=== PATIENT | male | born 1970 | race Caucasian/White ===

== ENCOUNTER → 2017-12-21 | Outpatient (CLI) | payer BC ==
[2017-12-21 09:08] LABS: BASOPHILS # (AUTO) 0.05 x10^3/uL (0-0.1); BASOPHILS % (AUTO) 1 % (0-1); EOSINOPHILS # (AUTO) 0.14 x10^3/uL (0-0.4); EOSINOPHILS % (AUTO) 2 % (1-7); LYMPHOCYTES # (AUTO) 1.99 x10^3/uL (1-3.4); LYMPHOCYTES % (AUTO) 31 % (22-44); MD NO; MEAN CORPUSCULAR HEMOGLOBIN 29.4 pg (27.5-34.5); MEAN CORPUSCULAR HGB CONC 33.7 g/dL (33.2-36.2); MEAN CORPUSCULAR VOLUME 87.2 fL (81-97); MEAN PLATELET VOLUME 7.8 fL (7.4-10.4); MONOCYTES # (AUTO) 0.56 x10^3/uL (0.2-0.8); MONOCYTES % (AUTO) 9 % (2-9); NEUTROPHILS # (AUTO) 3.63 x10^3/uL (1.8-6.8); NEUTROPHILS % (AUTO) 57 % (42-75); PLATELET COUNT 267 x10^3/uL (130-400); RED CELL DISTRIBUTION WIDTH 14.2 % (9.4-14.8)
[2017-12-21 09:17] LABS: INTERNATIONAL NORMALIZED RATIO 1.03 (0.93-1.1); PROTHROMBIN TIME 10.6 Seconds (9.6-11.5)
[2017-12-21 09:18] LABS: ALANINE AMINOTRANSFERASE 64 U/L (12-78); ALBUMIN 4.1 g/dL (3.4-5.0); ANION GAP 7 mmol/L (5-15); CALCIUM 8.6 mg/dL (8.5-10.1); CHLORIDE 107 mmol/L (98-107); CREATININE 0.93 mg/dL (0.7-1.3)
[2017-12-21 09:20] LABS: ALKALINE PHOSPHATASE 44 U/L (45-117); BILIRUBIN,TOTAL 0.5 mg/dL (0.2-1.0); TOTAL PROTEIN 7.7 g/dL (6.4-8.2)
== END | disposition home or self-care (01) ==
LOC: STAR 08:20
PROVIDERS: ATTEND Surgery
DX: Z01.818 Encounter for other preprocedural examination (principal); R00.1 Bradycardia, unspecified
CPT/HCPCS: 36415; 80053; 85025; 85610; 93005

== ENCOUNTER 2017-12-28 06:30 | Day surgery (SDC) | payer BC ==
[~2017-12-28] VITALS: Ht 177.8 cm; Wt 106.7 kg
[2017-12-28 07:13] VITALS: BP 126/76
[2017-12-28] MEDS ORDERED: LACTATED RINGERS 1,000 ML IV SCH (07:16)
[2017-12-28] MEDS ORDERED: EPINEPHRINE 1 MG/ML, 1ML ONE (07:23)
[2017-12-28] MEDS ORDERED: BUPIVACAINE/PF 0.5% ONE (07:23)
[2017-12-28] MEDS ORDERED: FENTANYL PF 250 MCG/5ML ONE (07:41)
[2017-12-28] MEDS ORDERED: MIDAZOLAM 1 MG/ML, 2ML ONE (07:41)
[2017-12-28] MEDS ORDERED: PROPOFOL 10 MG/ML, 20ML ONE (07:45)
[2017-12-28] MEDS ORDERED: GLYCOPYRROLATE 0.2MG/1ML, 5ML ONE (07:45)
[2017-12-28] MEDS ORDERED: CEFAZOLIN 1,000 MG ONE (07:45)
[2017-12-28] MEDS ORDERED: DEXAMETHASONE 4 MG/ML, 1ML ONE (07:45)
[2017-12-28] MEDS ORDERED: ONDANSETRON 2MG/ML, 2ML ONE (07:45)
[2017-12-28] MEDS ORDERED: ACETAMINOPHEN 325 MG TABLET PO PRN (08:30)
[2017-12-28] MEDS ORDERED: ONDANSETRON 2MG/ML, 2ML IV PRN (08:30)
[2017-12-28] MEDS ORDERED: FENTANYL PF 100 MCG/2ML IV PRN (08:30)
[2017-12-28] MEDS ORDERED: ONDANSETRON ODT 8 MG PO PRN (08:30)
[2017-12-28] MEDS ORDERED: MEPERIDINE/PF 25MG/0.5ML IVPush PRN (08:30)
[2017-12-28] MEDS ORDERED: PROMETHAZINE 25 MG/ML, 1ML IV PRN (08:30)
[2017-12-28] MEDS ORDERED: MORPHINE SULFATE 4 MG/ML, 1ML IVPush PRN (08:30)
[2017-12-28] MEDS ORDERED: OXYcodone 5 MG/5 ML ORAL.SOL UDC PO PRN (08:30)
[2017-12-28] MEDS ORDERED: KETOROLAC 30 MG/1 ML IVPush ONE (08:51)
[2017-12-28] MEDS ORDERED: ACETAMINOPHEN 650 MG/20.3 ML UDC ONE (08:54)
[2017-12-28] MEDS ORDERED: OXYcodone 5 MG/5 ML ORAL.SOL UDC ONE (08:55)
[2017-12-28] MEDS ORDERED: FENTANYL PF 100 MCG/2ML ONE (08:55)
[2017-12-28] MEDS ORDERED: KETOROLAC 30 MG/1 ML ONE (08:55)
== END 2017-12-28 11:45 | disposition home or self-care (01) ==
LOC: OUT 06:30
PROVIDERS: ATTEND Surgery
DX: K43.2 Incisional hernia without obstruction or gangrene (principal); J45.909 Unspecified asthma, uncomplicated; E78.00 Pure hypercholesterolemia, unspecified; E66.9 Obesity, unspecified; Z72.89 Other problems related to lifestyle
CPT/HCPCS: 49560; 49568; C1781; J0171; J0690; J1100; J1885; J2250; J2405; J2704; J3010; J3490